=== PATIENT | male | born 1955 | race Caucasian/White ===

== ENCOUNTER 2017-02-21 08:58 | Outpatient (CLI) | payer OTHER ==
--- NOTE | 2017-02-21 12:44 | MRI ---
BRAIN MRI WITHOUT CONTRAST: DATE: 02/21/17. COMPARISON: None. HISTORY: Essential tremor. TECHNIQUE: Multiplanar, multisequence MR imaging of the brain is provided without contrast. FINDINGS: The patient is status post right frontal craniotomy. The diffusion weighted imaging demonstrates no evidence for acute infarction. The axial gradient echo imaging demonstrates no evidence for intracra nial hemorrhage. There is mild mucosal thickening of the left frontal sinus. There is partial opacification of bilate ral ethmoid air cells. There is mild mucosal thickening of the maxillary sinus on the left. Arterial flow voids at axial level of skull base demonstrate a dominant right vertebral artery with a hypoplastic distal left vertebral artery. There is no midline shift or mass effect. The ventricular system appears normal in configuration and size. There are a few scattered foci of T2 and FLAIR hyperintensity within the subcortical white ma tter suggesting minimal small-vessel disease. The regional bone marrow signal intensity appears within normal limits. The axial FLAIR and T2 weighted imaging demonstrates a normal thickness of the pars compacta of the s ubstantia nigra with a clear distinction between the substantia nigra and the red nucleus. IMPRESSION: No acute findings. POS: [facility]
== END 2017-02-21 08:59 | disposition home or self-care (01) ==
LOC: SCSMRI 08:58
PROVIDERS: ATTEND Psychiatry & Neurology Neurology
DX: G25.0 Essential tremor (principal)
CPT/HCPCS: 70551